=== PATIENT | male | born 1995 ===

== ENCOUNTER 2017-03-05 10:02 | Emergency (ER) | payer BC, OTHER ==
[2017-03-05 10:08] VITALS: TEMP 98.8; BMI 36.7
--- NOTE | 2017-03-05 11:07 | ED PDOC ---
Arrival/HPI - General Chief Complaint: Upper Extremity Problem/Injury Time Seen by Provider: 03/05/17 10:37 Historian: Patient - History of Present Illness Narrative History of Present Illness (Text): 03/05/17 11:01 22-year-old male presents today with right shoulder and arm pain status post injury. Patient states he was carrying a patient approximately 280 pounds down the steps using a stair chair when they lost control and the patient ended up losing balance and had to pull the patient with his right arm only. Patient states at that moment he developed severe pain in the right shoulder/right axilla. Patient states initially he had a tingling sensation in the hand but it has resolved. No medications have been taken for pain at home. The incident occurred prior to arrival. Past Medical History - Provider Review Nursing Documentation Reviewed: Yes - Travel History Have you recently traveled outside [place] w/in the past 3 mons?: No - Infectious Disease Hx of Infectious Diseases: None - Tetanus Immunization Tetanus Immunization: Unknown - Cardiac Hx Cardiac Disorders: No Hx Hypertension: No - Pulmonary Hx Respiratory Disorders: Yes Hx Asthma: Yes - Neurological Hx Neurological Disorder: No - HEENT Hx HEENT Disorder: No - Renal Hx Renal Disorder: No - Endocrine/Metabolic Hx Endocrine Disorders: No - Hematological/Oncological Hx Blood Disorders: No - Integumentary Hx Dermatological Disorder: No Hx Basal Cell Carcinoma: No - Musculoskeletal/Rheumatological Hx Musculoskeletal Disorders: No - Gastrointestinal Hx Gastrointestinal Disorders: No - Genitourinary/Gynecological Hx Genitourinary Disorders: Yes Other/Comment: Kidney Stones - Psychiatric Hx Psychophysiologic Disorder: No Hx Substance Use: No - Surgical History Hx Appendectomy: Yes Hx Orthopedic Surgery: Yes - Anesthesia Hx Anesthesia: Yes Hx Anesthesia Reactions: No Family/Social History - Physician Review Nursing Documentation Reviewed: Yes Family/Social History: Unknown Family HX Smoking Status: Heavy Smoker > 10 Cigarettes Daily Hx Alcohol Use: Yes Frequency of alcohol use: Socially Hx Substance Use: No Allergies/Home Meds Allergies/Adverse Reactions: Allergies No Known Allergies Allergy (Verified 03/05/17 10:08) Home Medications: Home Meds Medication Instructions Recorded Confirmed Albuterol HFA [Ventolin HFA 90 1 inh INH PRN PRN 03/05/17 03/05/17 mcg/actuation (8 g)] Review of Systems - Review of Systems Constitutional: absent: Fatigue, Fevers Respiratory: absent: SOB, Cough Cardiovascular: absent: Chest Pain, Palpitations Gastrointestinal: absent: Abdominal Pain, Nausea, Vomiting Musculoskeletal: Arthralgias. absent: Back Pain, Neck Pain Skin: absent: Rash, Pruritis Neurological: absent: Headache, Dizziness Psychiatric: absent: Anxiety, Depression Physical Exam Vital Signs Reviewed: Yes Vital Signs Temp Pulse Resp BP Pulse Ox 03/05/17 11:40 65 18 125/76 97 03/05/17 10:08 98.8 F 68 16 128/84 97 Temperature: Afebrile Blood Pressure: Normal Pulse: Regular Respiratory Rate: Normal Appearance: Positive for: Well-Appearing, Non-Toxic, Comfortable Pain Distress: None Mental Status: Positive for: Alert and Oriented X 3 - Systems Exam Head: Present: Atraumatic Mouth: Present: Moist Mucous Membranes Neck: Present: Normal Range of Motion Respiratory/Chest: Present: Clear to Auscultation, Good Air Exchange, Tender to Palpation (+ ttp over right axilla; + ttp over lateral aspect of pectoralis muscle; ). No: Respiratory Distress, Accessory Muscle Use Cardiovascular: Present: Regular Rate and Rhythm, Normal S1, S2. No: Murmurs Back: Present: Normal Inspection Upper Extremity: Present: Normal ROM, NORMAL PULSES, Tenderness (right shoulder ; + ttp over medial anterior aspect of the shoulder; full rom of shoulder with pain. sensation and distal pulses intact; + ttp over biceps tendon; no bulge. Full range of motion of the elbow, hand and wrist.), Neurovascularly Intact, Capillary Refill < 2s. No: Erythema Neurological: Present: GCS=15, CN II-XII Intact, Speech Normal, Motor Func Grossly Intact, Normal Sensory Function Skin: Present: Warm, Dry, Normal Color Psychiatric: Present: Alert, Oriented x 3 Medical Decision Making ED Course and Treatment: 03/05/17 11:14 Patient nontoxic well-appearing in no distress with stable vital signs X-rays of the right shoulder; no fracture toradol IM sling applied; I discussed all results with patient advised to followup with the orthopedist for the next 2 days. I have advised the patient and the possibility of pulled muscle/possible torn muscle. I stressed the importance of follow-up with the orthopedist within the next 2 days. I've advised immediate return if symptoms worsen persist or new symptoms develop. Patient verbalizes understanding of discharge instructions and need for immediate followup. all aspects of this case were discussed the attending of record. Impression: shoulder pain Motrin every 6 hours as needed for pain Flexeril one tablet every 8 hours as needed for muscle spasms colon may cause drowsiness use sling Followup with the orthopedist within the next 2 days Followup with primary care physician within the next 2 days Return if any other concerning symptoms develop - RAD Interpretation Radiology Orders: 03/05/17 10:45 SHOULDER RIGHT [RAD] Stat - Medication Orders Current Medication Orders: Discontinued Medications Ketorolac Tromethamine (Toradol) 60 mg IM STAT STA Stop: 03/05/17 10:46 Last Admin: 03/05/17 10:59 Dose: 60 MG IM Administration Charges Document 03/05/17 10:59 SF (Rec: 03/05/17 10:59 SF [facility] [id number]) Injection Site MAR Injection Site Left Deltoid Charges for Administration # of IM Administrations 1 Disposition/Present on Arrival - Present on Arrival Any Indicators Present on Arrival: No History of DVT/PE: No History of Uncontrolled Diabetes: No Urinary Catheter: No History of Decub. Ulcer: No History Surgical Site Infection Following: None - Disposition Have Diagnosis and Disposition been Completed?: Yes Diagnosis: Arm pain, Shoulder pain, Muscle strain Disposition: HOME/ ROUTINE Disposition Time: 11:30 Patient Plan: Discharge Condition: GOOD Discharge Instructions (ExitCare): Muscle Strain (ED) Additional Instructions: Motrin every 6 hours as needed for pain Flexeril one tablet every 8 hours as needed for muscle spasms: may cause drowsiness Use sling Follow-up with the orthopedist within the next 2 days Return immediately if symptoms worsen persist or if new concerning symptoms develop Prescriptions: Cyclobenzaprine [Cyclobenzaprine HCl] 10 mg PO Q8 #10 tab Ibuprofen [Motrin] 600 mg PO Q6H PRN #20 tab PRN Reason: pain/fever reduction Referrals: Krista Solitario MD [Primary Care Provider] - Follow up with primary Diomedes Meadows DO [Staff Provider] - Follow up with primary Forms: WORK NOTE
--- NOTE | 2017-03-05 11:39 | RAD ---
PROCEDURE: Radiographs of the Right Shoulder HISTORY: Pain COMPARISON: No prior. FINDINGS: BONES: Bone alignment and mineralization are normal. There is no acute fracture or bone destruction. JOINTS: Normal. Glenohumeral and acromioclavicular joints preserved. SOFT TISSUES: Normal. OTHER FINDINGS: None. IMPRESSION: Normal examination.
[2017-03-05 12:00] VITALS: BP 126/80; PULSE 60; RESP 16; O2SAT 99
== END 2017-03-05 12:00 | disposition home or self-care (01) ==
LOC: ED 10:02
DX: S46.811A Strain of other muscles, fascia and tendons at shoulder and upper arm level, right arm, initial encounter (principal); X50.0XXA Overexertion from strenuous movement or load, initial encounter; Y93.89 Activity, other specified; Y92.89 Other specified places as the place of occurrence of the external cause; Y99.0 Civilian activity done for income or pay
CPT/HCPCS: 29240; 73030; 96372; 99284; J1885